=== PATIENT | female | born 2000 | race Caucasian/White ===

== ENCOUNTER 2021-11-17 06:25 | Emergency (ER) | payer OTHER ==
[2021-11-17] MEDS ORDERED: ZOFRAN 4 MG TAB4 MG PO (07:24)
[2021-11-17] MEDS ORDERED: PROTONIX40 MG PO (07:24)
[2021-11-17 07:34] LABS: HEMOGLOBIN 14.3 gm/dl (12.3-15.3); RED BLOOD COUNT 5.16 M/UL (4.00-5.10); WHITE BLOOD COUNT 12.7 K/UL (4.5-11.0)
[2021-11-17 09:08] LABS: BUN/CREATININE RATIO 24 (0-10)
== END 2021-11-17 13:20 | disposition home or self-care (01) ==
LOC: ER1 06:25
PROVIDERS: Physician Assistant Medical
DX: R10.84 Generalized abdominal pain (principal); R11.2 Nausea with vomiting, unspecified; R19.7 Diarrhea, unspecified; K21.9 Gastro-esophageal reflux disease without esophagitis; R10.817 Generalized abdominal tenderness
CPT/HCPCS: 80053; 81001; 83605; 83690; 84703; 85025; 87086; 96374; 96375; 99284; C9113; J2405; J2550; J7030; Q9967